=== PATIENT | female | born 1995 ===

== ENCOUNTER → 2020-11-07 | Outpatient (CLI) | payer OTHER | END | disposition home or self-care (01) | LOC: LAB 11:25 | PROVIDERS: ATTEND Emergency Medicine Pediatric Emergency Medicine | DX: Z03.818 Encounter for observation for suspected exposure to other biological agents ruled out (principal) ==

== ENCOUNTER 2021-03-04 08:00 | Outpatient (CLI) | payer OTHER | END 2021-03-04 08:30 | disposition home or self-care (01) | LOC: PPH VACUNA 08:00 | PROVIDERS: ATTEND Emergency Medicine Pediatric Emergency Medicine | DX: Z23 Encounter for immunization (principal) ==

== ENCOUNTER 2021-04-26 09:00 | Outpatient (CLI) | payer OTHER | END 2021-04-26 09:15 | disposition home or self-care (01) | LOC: PPH VACUNA 09:00 | PROVIDERS: ATTEND Emergency Medicine Pediatric Emergency Medicine | DX: Z23 Encounter for immunization (principal) ==

== ENCOUNTER 2021-11-03 15:13 | Emergency (ER) | payer OTHER ==
[~2021-11-03] VITALS: Ht 162.6 cm; Wt 64.0 kg
== END 2021-11-04 00:26 | disposition home or self-care (01) ==
LOC: ER 15:13
DX: A49.3 Mycoplasma infection, unspecified site (principal); Z20.822 Contact with and (suspected) exposure to COVID-19

== ENCOUNTER 2021-12-17 08:00 | Outpatient (CLI) | payer OTHER | END 2021-12-17 08:05 | disposition home or self-care (01) | LOC: PPH VACUNA 08:00 | PROVIDERS: ATTEND Emergency Medicine Pediatric Emergency Medicine | DX: Z23 Encounter for immunization (principal) ==